=== PATIENT | female | born 1940 | race Caucasian/White ===

== ENCOUNTER 2022-09-23 09:57 | Emergency (ER) | payer OTHER, MEDICARE ==
[2022-09-23] MEDS ORDERED: Sodium Chloride 0.9% 10 ML Syringe FLUSH PRN (10:15)
[2022-09-23 11:07] LABS: ANION GAP 13.9 mEq/L (7-13)
[2022-09-23] MEDS ORDERED: Acetaminophen/HYDROcodone 325-5 MG Tab PO ONE (11:29)
[2022-09-23] MEDS ORDERED: Levofloxacin/Dextrose 5%-Water 500 MG in Premix Bag 1 BAG IV ONE (12:14)
[2022-09-23] MEDS ORDERED: Heparin Sodium/0.45% NaCl 25,000 UNITS/500 ML BAG IV SCH (12:15)
== END 2022-09-23 13:25 | disposition home or self-care (01) ==
LOC: DL.ED 09:57
DX: M79.602 Pain in left arm (principal); D72.829 Elevated white blood cell count, unspecified; I25.10 Atherosclerotic heart disease of native coronary artery without angina pectoris; Z88.2 Allergy status to sulfonamides; Z79.899 Other long term (current) drug therapy; Z79.82 Long term (current) use of aspirin
CPT/HCPCS: 36415; 71045; 80053; 81003; 84484; 85025; 93005; 93010; 99284; A9270

== ENCOUNTER 2022-09-29 12:21 | Emergency (ER) | payer MEDICARE, OTHER ==
[2022-09-29 13:30] LABS: ANION GAP 11.4 mEq/L (7-13)
== END 2022-09-29 13:45 | disposition home or self-care (01) ==
LOC: DL.ED 12:21
DX: D72.829 Elevated white blood cell count, unspecified (principal); M15.9 Polyosteoarthritis, unspecified; I25.10 Atherosclerotic heart disease of native coronary artery without angina pectoris; K21.9 Gastro-esophageal reflux disease without esophagitis; Z79.82 Long term (current) use of aspirin; Z79.899 Other long term (current) drug therapy; Z88.2 Allergy status to sulfonamides; Z95.5 Presence of coronary angioplasty implant and graft
CPT/HCPCS: 36415; 80053; 82150; 83690; 85025; 86140; 99283